=== PATIENT | male | born 1950 | race Caucasian/White ===

== ENCOUNTER 2017-12-11 20:04 | Emergency (ER) | payer MEDICARE, MEDICAID ==
[~2017-12-11] VITALS: Ht 172.7 cm; Wt 70.3 kg
[2017-12-11 21:23] LABS: Basophils # (auto) 0.1 uL; Basophils % (auto) 0.3 % (0.0-2.0); Eosinophils # (auto) 0.3 uL; Eosinophils % (auto) 1.7 % (0.0-7.0); Hematocrit 39.3 % (41.0-53.0); Hemoglobin 13.5 g/dL (13.5-17.5); Lymphocytes # (auto) 1.7 uL; Lymphocytes % (auto) 10.6 % (10.0-50.0); Mean Corpuscular Hemoglobin 31.8 pg (28.0-32.0); Mean Corpuscular Hgb Conc. 34.4 g/dL (32.0-36.0); Mean Corpuscular Volume 92.2 fL (80.0-100.0); Monocytes # (auto) 0.6 uL; Monocytes % (auto) 3.9 % (0.0-12.0); Neutrophils # (auto) 13.6 uL; Neutrophils % (auto) 83.5 % (37.0-80.0); Platelet Count (auto) 371 10^3/uL (140-450); Red Blood Cells 4.26 10^6/uL (4.5-5.90); Red Cell Distribution Width 14.9 % (11.8-14.3); White Blood Cell 16.3 10^3/uL (4.4-10.8)
[2017-12-11] MEDS ORDERED: TETANUS-DIPTH-ACEL PERTUSSIS 0.5ML SYRG IM ONE (21:30)
[2017-12-11 21:33] LABS: Alanine Aminotransferase 22 U/L (16-61); Albumin 3.2 g/dL (3.4-5.0); Anion Gap 13 (5-15); Aspartate Aminotransferase 17 U/L (15-37); BUN/Creatinine Ratio 11.9; Blood Urea Nitrogen 18 mg/dL (7-18); Calcium 7.8 mg/dL (8.5-10.1); Carbon Dioxide 21 mmol/L (21-32); Chloride 105 mmol/L (98-107); GFR African American 60 mL/min; GFR Non-African American 50 mL/min; Glucose 102 mg/dL (74-106); Potassium 3.4 mmol/L (3.5-5.1); Sodium 139 mmol/L (136-145)
[2017-12-11 21:37] LABS: Alkaline Phosphatase 66 U/L (45-117); Bilirubin, Total 0.4 mg/dL (0.2-1.0); Total Protein 6.5 g/dL (6.4-8.2)
[2017-12-12 00:19] VITALS: BP 121/74
[2017-12-12] MEDS ORDERED: NALBUPHINE HCL 10 MG/1ml INJECTION IV ONE (00:30)
== END 2017-12-12 01:56 | disposition home or self-care (01) ==
LOC: ER 20:04
DX: S02.2XXA Fracture of nasal bones, initial encounter for closed fracture (principal); S42.211A Unspecified displaced fracture of surgical neck of right humerus, initial encounter for closed fracture; W18.39XA Other fall on same level, initial encounter; Y93.89 Activity, other specified; Y99.8 Other external cause status; Y92.89 Other specified places as the place of occurrence of the external cause
CPT/HCPCS: 29105; 36415; 70450; 70486; 71045; 72125; 73030; 80053; 80320; 84484; 85025; 90471; 90715; 93005; 96374; 99285; J2300

== ENCOUNTER 2021-07-19 03:00 | Inpatient (IN) | payer MEDICARE, OTHER ==
[~2021-07-19] VITALS: Ht 175.3 cm; Wt 78.5 kg
[2021-07-19] MEDS ORDERED: SODIUM CHLORIDE 0.9% 1,000 ML IV ONE (03:15)
[2021-07-19 05:20] LABS: Basophils # (auto) 0.1 10 ^3/uL (0-0.2); Basophils % (auto) 0.5 % (0.0-2.0); Eosinophils # (auto) 0 10 ^3/uL (0-0.8); Neutrophils # (auto) 8.9 10 ^3/uL (1.6-8.6); Red Cell Distribution Width 15.3 % (11.8-14.3); White Blood Cell 10.4 10^3/uL (4.4-10.8)
[2021-07-19 05:22] LABS: Calcium 7.8 mg/dL (8.5-10.1); Chloride 112 mmol/L (98-107); Eosinophils % (auto) 0.5 % (0.0-7.0); Hematocrit 36.8 % (41.0-53.0); Hemoglobin 12.1 g/dL (13.5-17.5); Lymphocytes % (auto) 9.2 % (10.0-50.0); Mean Corpuscular Hemoglobin 33.7 pg (28.0-32.0); Mean Corpuscular Volume 102.1 fL (80.0-100.0); Monocytes # (auto) 0.4 10 ^3/uL (0-1.3); Monocytes % (auto) 4.3 % (0.0-12.0); Neutrophils % (auto) 85.5 % (37.0-80.0); Potassium 3.9 mmol/L (3.5-5.1); Sodium 142 mmol/L (136-145)
[2021-07-19 05:30] LABS: Alanine Aminotransferase 43 U/L (16-61); Albumin 2.3 g/dL (3.4-5.0); Alkaline Phosphatase 135 U/L (45-117); Anion Gap 7 (5-15); Aspartate Aminotransferase 41 U/L (15-37); Bilirubin, Total 0.9 mg/dL (0.2-1.0); Blood Alcohol < 3.0 mg/dL (0-5); Blood Urea Nitrogen 16 mg/dL (7-18); Carbon Dioxide 23 mmol/L (21-32); GFR African American 159 mL/min; GFR Non-African American 132 mL/min; Glucose 87 mg/dL (74-106); Magnesium 2.2 mg/dL (1.6-2.6); Total Protein 5.9 g/dL (6.4-8.2)
[2021-07-19] MEDS ORDERED: MORPHINE SULFATE INJECTION 2 MG/ML SYRG IV ONE (12:45)
[2021-07-19] MEDS ORDERED: ONDANSETRON HCL 4 MG/2 ML VIAL IV ONE (12:45)
[2021-07-19] MEDS ORDERED: cefTRIAXone 1GM/50ML D5W 50 ML IV ONE (13:15)
[2021-07-19] MEDS ORDERED: CLINDAMYCIN 600MG IV 50 ML IV ONE (13:15)
[2021-07-19] MEDS ORDERED: FOLIC ACID 1 MG TAB PO ONE (13:15)
[2021-07-19] MEDS ORDERED: MULTIPLE VITAMINS W/ MINERALS TAB PO ONE (13:15)
[2021-07-19] MEDS ORDERED: MORPHINE SULFATE INJECTION 2 MG/ML SYRG IV PRN ×3 (13:15→16:15)
[2021-07-19] MEDS ORDERED: LORazepam 2MG/ML-1ML VIAL IV PRN ×2 (13:15)
[2021-07-19] MEDS ORDERED: THIAMINE 100mg/ml INJ (200mg/2ml VIAL) IV ONE (13:15)
[2021-07-19] MEDS ORDERED: NITROGLYCERIN 0.4 MG SL TAB SL PRN ×3 (13:15→16:15)
[2021-07-19] MEDS ORDERED: CLINDAMYCIN 600MG IV 50 ML IV SCH (14:00)
[2021-07-19] MEDS ORDERED: ENOXAPARIN SOD 40 MG/0.4 ML SYRINGE SC ONE (16:15)
[2021-07-19] MEDS ORDERED: SODIUM CHLORIDE 0.9% 1,000 ML IV SCH (16:15)
[2021-07-19] MEDS ORDERED: ACETAMINOPHEN 325 MG TAB PO PRN (16:15)
[2021-07-19] MEDS ORDERED: FAMOTIDINE (10MG/ML) 2ML VL IV ONE (16:15)
[2021-07-19] MEDS ORDERED: NIFEdipine ER 30 MG TAB PO ONE (16:15)
[2021-07-19] MEDS ORDERED: DOCUSATE SOD 100 MG CAP PO PRN (16:15)
[2021-07-19] MEDS ORDERED: BENAZEPRIL HCL 10 MG TAB PO ONE (16:15)
[2021-07-19] MEDS ORDERED: ALUM & MAG HYDROX-SIMETH LIQ(MAALOX) 30 ML PO PRN (16:15)
[2021-07-19] MEDS: chlordiazePOXIDE HCL 25 MG CAP PO SCH (16:33)
[2021-07-19 16:34] LABS: Cholesterol 144 mg/dL (< 200)
[2021-07-19 16:37] LABS: HDL Cholesterol 54 mg/dL (40-59); LDL Cholesterol 71 mg/dL (< 100); Triglycerides 93 mg/dL (< 150)
[2021-07-19] MEDS: hydrALAZINE HCL 20 MG/ML VL IV SCH (18:00)
[2021-07-19 21:15] LABS: % Iron Saturation 22.3 % (20-55)
[2021-07-19] MEDS: ATORVASTATIN 20 MG TAB PO SCH (21:17)
[2021-07-19] MEDS: CLINDAMYCIN 600MG IV 50 ML IV SCH (21:17)
[2021-07-19] MEDS: FAMOTIDINE (10MG/ML) 2ML VL IV SCH (21:17)
[2021-07-19] MEDS: HYDROcodone-ACET 5/325MG TAB PO PRN (21:18)
[2021-07-19 22:00] VITALS: BP 135/94
[2021-07-20] MEDS: chlordiazePOXIDE HCL 25 MG CAP PO SCH ×2 (01:56→08:40)
[2021-07-20] MEDS: HYDROcodone-ACET 5/325MG TAB PO PRN (04:21)
[2021-07-20 05:00] VITALS: BP 101/71
[2021-07-20 05:26] LABS: Basophils # (auto) 0.1 10 ^3/uL (0-0.2); Basophils % (auto) 1.1 % (0.0-2.0); Eosinophils # (auto) 0.1 10 ^3/uL (0-0.8); Eosinophils % (auto) 2.3 % (0.0-7.0); Hematocrit 31.3 % (41.0-53.0); Hemoglobin 10.6 g/dL (13.5-17.5); Lymphocytes # (auto) 1.2 10 ^3/uL (0.4-5.4); Mean Corpuscular Hgb Conc. 33.9 g/dL (32.0-36.0); Mean Corpuscular Volume 100.2 fL (80.0-100.0); Monocytes # (auto) 0.4 10 ^3/uL (0-1.3); Monocytes % (auto) 7.4 % (0.0-12.0); Neutrophils # (auto) 3.5 10 ^3/uL (1.6-8.6); Neutrophils % (auto) 66.2 % (37.0-80.0); Nucleated Red Blood Cells % 0.1 %; Red Blood Cells 3.12 10^6/uL (4.5-5.90); Red Cell Distribution Width 15.2 % (11.8-14.3); White Blood Cell 5.3 10^3/uL (4.4-10.8)
[2021-07-20 05:42] LABS: INR 1.04 (0.9-1.15); Partial Thromboplastin Time 28.2 sec (23.6-33.0)
[2021-07-20 05:43] LABS: Calcium 7.7 mg/dL (8.5-10.1); Magnesium 2.5 mg/dL (1.6-2.6); Potassium 3.2 mmol/L (3.5-5.1)
[2021-07-20 05:50] LABS: BUN/Creatinine Ratio 21.1; Bilirubin, Total 0.4 mg/dL (0.2-1.0); Phosphorus 3.4 mg/dL (2.5-4.90); Total Protein 5.1 g/dL (6.4-8.2)
[2021-07-20] MEDS: hydrALAZINE HCL 20 MG/ML VL IV SCH ×4 (06:00→17:56)
[2021-07-20] MEDS: CLINDAMYCIN 600MG IV 50 ML IV SCH ×3 (06:31→13:23)
[2021-07-20] MEDS: cefTRIAXone 1GM/50ML D5W 50 ML IV SCH (08:42)
[2021-07-20] MEDS: FAMOTIDINE (10MG/ML) 2ML VL IV SCH (09:02)
[2021-07-20 09:05] VITALS: BP 96/64
[2021-07-20] MEDS: MULTIPLE VITAMINS W/ MINERALS TAB PO SCH (09:06)
[2021-07-20] MEDS: ASPirin 81 mg TAB PO SCH (09:06)
[2021-07-20] MEDS: THIAMINE 100mg/ml INJ (200mg/2ml VIAL) IV SCH (09:07)
[2021-07-20] MEDS: ENOXAPARIN SOD 40 MG/0.4 ML SYRINGE SC SCH (09:10)
[2021-07-20] MEDS: FOLIC ACID 1 MG TAB PO SCH (09:10)
[2021-07-20] MEDS: NIFEdipine ER 30 MG TAB PO SCH (10:00)
[2021-07-20] MEDS: BENAZEPRIL HCL 10 MG TAB PO SCH (10:00)
[2021-07-20] MEDS ORDERED: SOD CHL 0.45% 1,000 ML IV SCH (11:45)
[2021-07-20 12:41] VITALS: BP 95/62
[2021-07-20 12:45] LABS: Hepatitis A Ab IgM Negative; Hepatitis B Core IgM Negative; Hepatitis C Antibody Negative (Negative)
[2021-07-20] MEDS: D5W/ SOD CHL 0.9%/KCL 20MEQ 1,000 ML IV SCH (13:22)
[2021-07-20 17:01] VITALS: BP 111/72
[2021-07-20 22:00] VITALS: BP 116/77
[2021-07-21] MEDS: chlordiazePOXIDE HCL 25 MG CAP PO SCH ×3 (00:25→22:58)
[2021-07-21] MEDS: FAMOTIDINE (10MG/ML) 2ML VL IV SCH ×3 (00:25→22:58)
[2021-07-21] MEDS: ATORVASTATIN 20 MG TAB PO SCH ×2 (00:26→22:59)
[2021-07-21] MEDS: CLINDAMYCIN 600MG IV 50 ML IV SCH ×3 (06:26→22:57)
[2021-07-21] MEDS: hydrALAZINE HCL 20 MG/ML VL IV SCH ×4 (06:28→18:00)
[2021-07-21 08:25] VITALS: BP_SYST 100; BP_SYST 150; BP_DIAS 67
[2021-07-21] MEDS: HYDROcodone-ACET 5/325MG TAB PO PRN (08:55)
[2021-07-21] MEDS: cefTRIAXone 1GM/50ML D5W 50 ML IV SCH (09:05)
[2021-07-21] MEDS: BENAZEPRIL HCL 10 MG TAB PO SCH (09:10)
[2021-07-21] MEDS: MULTIPLE VITAMINS W/ MINERALS TAB PO SCH (09:10)
[2021-07-21] MEDS: NIFEdipine ER 30 MG TAB PO SCH (09:11)
[2021-07-21] MEDS: ENOXAPARIN SOD 40 MG/0.4 ML SYRINGE SC SCH (09:12)
[2021-07-21] MEDS: FOLIC ACID 1 MG TAB PO SCH (09:12)
[2021-07-21] MEDS: THIAMINE 100mg/ml INJ (200mg/2ml VIAL) IV SCH (09:13)
[2021-07-21] MEDS: ASPirin 81 mg TAB PO SCH (09:17)
[2021-07-21] MEDS ORDERED: IOHEXOL 350 MG/ML 100ML IJ ONE (12:23)
[2021-07-21 22:00] VITALS: BP 117/75
[2021-07-21] MEDS: D5W/ SOD CHL 0.9%/KCL 20MEQ 1,000 ML IV SCH (22:57)
[2021-07-22] MEDS: D5W/ SOD CHL 0.9%/KCL 20MEQ 1,000 ML IV SCH ×3 (01:10→07:00)
[2021-07-22] MEDS: hydrALAZINE HCL 20 MG/ML VL IV SCH ×5 (01:11→18:57)
[2021-07-22] MEDS: HYDROcodone-ACET 5/325MG TAB PO PRN ×2 (01:17→09:07)
[2021-07-22] MEDS: MORPHINE SULFATE INJECTION 2 MG/ML SYRG IV PRN ×2 (03:51→19:04)
[2021-07-22 05:00] VITALS: BP 116/78
[2021-07-22] MEDS: CLINDAMYCIN 600MG IV 50 ML IV SCH ×3 (06:12→22:22)
[2021-07-22] MEDS: FAMOTIDINE (10MG/ML) 2ML VL IV SCH ×2 (09:08→22:23)
[2021-07-22] MEDS: cefTRIAXone 1GM/50ML D5W 50 ML IV SCH (09:09)
[2021-07-22] MEDS: ASPirin 81 mg TAB PO SCH (09:11)
[2021-07-22] MEDS: chlordiazePOXIDE HCL 25 MG CAP PO SCH (09:12)
[2021-07-22] MEDS: MULTIPLE VITAMINS W/ MINERALS TAB PO SCH (09:12)
[2021-07-22] MEDS: FOLIC ACID 1 MG TAB PO SCH (09:13)
[2021-07-22] MEDS: NIFEdipine ER 30 MG TAB PO SCH (09:51)
[2021-07-22] MEDS: BENAZEPRIL HCL 10 MG TAB PO SCH (09:52)
[2021-07-22] MEDS: THIAMINE 100mg/ml INJ (200mg/2ml VIAL) IV SCH (09:53)
[2021-07-22] MEDS: ENOXAPARIN SOD 40 MG/0.4 ML SYRINGE SC SCH (09:53)
[2021-07-22 10:19] LABS: Calcium 8.3 mg/dL (8.5-10.1); Potassium 3.4 mmol/L (3.5-5.1)
[2021-07-22 13:20] VITALS: BP 101/64
[2021-07-22 17:00] VITALS: BP 101/69
[2021-07-22 20:00] VITALS: BP 135/75
[2021-07-22 22:00] VITALS: BP 107/79
[2021-07-22] MEDS: ATORVASTATIN 20 MG TAB PO SCH (22:23)
[2021-07-23] MEDS: hydrALAZINE HCL 20 MG/ML VL IV SCH ×2 (03:41→06:00)
[2021-07-23] MEDS: D5W/ SOD CHL 0.9%/KCL 20MEQ 1,000 ML IV SCH ×3 (03:45→21:43)
[2021-07-23 05:00] VITALS: BP 115/74
[2021-07-23] MEDS: CLINDAMYCIN 600MG IV 50 ML IV SCH ×3 (05:28→21:44)
[2021-07-23 06:15] LABS: Basophils # (auto) 0.1 10 ^3/uL (0-0.2); Basophils % (auto) 1.4 % (0.0-2.0); Eosinophils # (auto) 0.1 10 ^3/uL (0-0.8); Eosinophils % (auto) 2.8 % (0.0-7.0); Hemoglobin 11.8 g/dL (13.5-17.5); Lymphocytes % (auto) 20.4 % (10.0-50.0); Mean Corpuscular Hgb Conc. 32.8 g/dL (32.0-36.0); Mean Corpuscular Volume 100.7 fL (80.0-100.0); Monocytes # (auto) 0.4 10 ^3/uL (0-1.3); Monocytes % (auto) 8.7 % (0.0-12.0); Neutrophils # (auto) 3.3 10 ^3/uL (1.6-8.6); Neutrophils % (auto) 66.7 % (37.0-80.0); Nucleated Red Blood Cells % 0.1 %; Red Blood Cells 3.58 10^6/uL (4.5-5.90); Red Cell Distribution Width 15.5 % (11.8-14.3)
[2021-07-23 06:27] LABS: Potassium 4.2 mmol/L (3.5-5.1)
[2021-07-23 06:48] LABS: Albumin 2.5 g/dL (3.4-5.0); BUN/Creatinine Ratio 10.3; Bilirubin, Total 0.3 mg/dL (0.2-1.0); Total Protein 6.1 g/dL (6.4-8.2)
[2021-07-23] MEDS ORDERED: chlordiazePOXIDE HCL 25 MG CAP PO SCH (07:00)
[2021-07-23] MEDS ORDERED: hydrALAZINE HCL 20 MG/ML VL IV PRN (07:45)
[2021-07-23 08:00] VITALS: BP 159/111
[2021-07-23] MEDS: FAMOTIDINE (10MG/ML) 2ML VL IV SCH ×2 (09:14→21:43)
[2021-07-23] MEDS: cefTRIAXone 1GM/50ML D5W 50 ML IV SCH (09:14)
[2021-07-23] MEDS: ENOXAPARIN SOD 40 MG/0.4 ML SYRINGE SC SCH (09:19)
[2021-07-23] MEDS: NIFEdipine ER 30 MG TAB PO SCH (09:21)
[2021-07-23] MEDS: ASPirin 81 mg TAB PO SCH (09:21)
[2021-07-23] MEDS: BENAZEPRIL HCL 10 MG TAB PO SCH (09:22)
[2021-07-23] MEDS: FOLIC ACID 1 MG TAB PO SCH (09:23)
[2021-07-23] MEDS: MULTIPLE VITAMINS W/ MINERALS TAB PO SCH (09:23)
[2021-07-23] MEDS: THIAMINE 100mg/ml INJ (200mg/2ml VIAL) IV SCH (09:24)
[2021-07-23 12:00] VITALS: BP 125/96
[2021-07-23] MEDS: HYDROcodone-ACET 5/325MG TAB PO PRN (15:38)
[2021-07-23 16:00] VITALS: BP 117/71
[2021-07-23 20:00] VITALS: BP 117/89
[2021-07-23] MEDS: ATORVASTATIN 20 MG TAB PO SCH (21:43)
[2021-07-23] MEDS: LORazepam 0.5 MG TAB PO PRN (23:26)
[2021-07-24 04:00] VITALS: BP 129/70
[2021-07-24] MEDS: D5W/ SOD CHL 0.9%/KCL 20MEQ 1,000 ML IV SCH ×2 (05:48→13:05)
[2021-07-24] MEDS: CLINDAMYCIN 600MG IV 50 ML IV SCH ×2 (05:49→14:00)
[2021-07-24] MEDS: LORazepam 0.5 MG TAB PO PRN (05:53)
[2021-07-24 08:00] VITALS: BP 159/111
[2021-07-24 09:00] VITALS: BP 112/89
[2021-07-24] MEDS: cefTRIAXone 1GM/50ML D5W 50 ML IV SCH (09:00)
[2021-07-24] MEDS: FAMOTIDINE (10MG/ML) 2ML VL IV SCH ×2 (10:00→21:32)
[2021-07-24] MEDS: ASPirin 81 mg TAB PO SCH (10:00)
[2021-07-24] MEDS: THIAMINE 100mg/ml INJ (200mg/2ml VIAL) IV SCH (10:00)
[2021-07-24] MEDS: NIFEdipine ER 30 MG TAB PO SCH (10:01)
[2021-07-24] MEDS: ENOXAPARIN SOD 40 MG/0.4 ML SYRINGE SC SCH (10:01)
[2021-07-24] MEDS: MULTIPLE VITAMINS W/ MINERALS TAB PO SCH (10:01)
[2021-07-24] MEDS: BENAZEPRIL HCL 10 MG TAB PO SCH (10:01)
[2021-07-24] MEDS: FOLIC ACID 1 MG TAB PO SCH (10:03)
[2021-07-24] MEDS: HYDROcodone-ACET 5/325MG TAB PO PRN ×2 (10:20→16:35)
[2021-07-24 12:00] VITALS: BP 148/96
[2021-07-24 16:00] VITALS: BP 123/82
[2021-07-24] MEDS: ATORVASTATIN 20 MG TAB PO SCH (21:32)
[2021-07-24] MEDS: metroNIDAZOLE 500MG/100ML 100 ML IV SCH (21:34)
[2021-07-24] MEDS: SOD CHL 0.45% 1,000 ML IV SCH (21:50)
[2021-07-24 22:00] VITALS: BP 139/91
[2021-07-25] MEDS: METOCLOPRAMIDE HCL 5MG/ml INJ 2ml VIAL IV PRN ×2 (03:01→20:53)
[2021-07-25] MEDS: HYDROcodone-ACET 5/325MG TAB PO PRN ×2 (03:22→13:30)
[2021-07-25 05:00] VITALS: BP 139/89
[2021-07-25] MEDS: metroNIDAZOLE 500MG/100ML 100 ML IV SCH ×3 (05:07→21:03)
[2021-07-25 09:00] VITALS: BP 138/81
[2021-07-25] MEDS: FAMOTIDINE (10MG/ML) 2ML VL IV SCH ×2 (10:03→21:03)
[2021-07-25] MEDS: ASPirin 81 mg TAB PO SCH (10:04)
[2021-07-25] MEDS: BENAZEPRIL HCL 10 MG TAB PO SCH (10:04)
[2021-07-25] MEDS: cefTRIAXone 1GM/50ML D5W 50 ML IV SCH (10:04)
[2021-07-25] MEDS: ENOXAPARIN SOD 40 MG/0.4 ML SYRINGE SC SCH (10:05)
[2021-07-25] MEDS: MULTIPLE VITAMINS W/ MINERALS TAB PO SCH (10:15)
[2021-07-25] MEDS: FOLIC ACID 1 MG TAB PO SCH (10:15)
[2021-07-25] MEDS: THIAMINE 100mg/ml INJ (200mg/2ml VIAL) IV SCH (10:15)
[2021-07-25 13:00] VITALS: BP 105/69
[2021-07-25] MEDS: SOD CHL 0.45% 1,000 ML IV SCH (15:30)
[2021-07-25 17:00] VITALS: BP 140/96
[2021-07-25] MEDS: NIFEdipine ER 30 MG TAB PO SCH (18:56)
[2021-07-25] MEDS: ATORVASTATIN 20 MG TAB PO SCH (21:03)
[2021-07-26] MEDS: MORPHINE SULFATE INJECTION 2 MG/ML SYRG IV PRN ×4 (02:07→20:56)
[2021-07-26] MEDS: HYDROcodone-ACET 5/325MG TAB PO PRN (04:03)
[2021-07-26] MEDS: metroNIDAZOLE 500MG/100ML 100 ML IV SCH (05:46)
[2021-07-26 06:18] VITALS: BP 107/72
[2021-07-26 09:00] VITALS: BP 110/71
[2021-07-26] MEDS: SOD CHL 0.45% 1,000 ML IV SCH (11:30)
[2021-07-26] MEDS: cefTRIAXone 1GM/50ML D5W 50 ML IV SCH (12:51)
[2021-07-26] MEDS: FAMOTIDINE (10MG/ML) 2ML VL IV SCH ×2 (12:52→21:00)
[2021-07-26] MEDS: THIAMINE 100mg/ml INJ (200mg/2ml VIAL) IV SCH (12:52)
[2021-07-26] MEDS: ASPirin 81 mg TAB PO SCH (12:52)
[2021-07-26] MEDS: FOLIC ACID 1 MG TAB PO SCH (12:53)
[2021-07-26] MEDS: MULTIPLE VITAMINS W/ MINERALS TAB PO SCH (12:54)
[2021-07-26] MEDS: BENAZEPRIL HCL 10 MG TAB PO SCH (12:54)
[2021-07-26] MEDS: ENOXAPARIN SOD 40 MG/0.4 ML SYRINGE SC SCH (12:55)
[2021-07-26] MEDS: NIFEdipine ER 30 MG TAB PO SCH (12:56)
[2021-07-26 13:00] VITALS: BP 113/72
[2021-07-26 17:00] VITALS: BP 133/76
[2021-07-26 20:00] VITALS: BP 109/78
[2021-07-26] MEDS: ATORVASTATIN 20 MG TAB PO SCH (22:00)
[2021-07-27 06:40] LABS: Basophils # (auto) 0 10 ^3/uL (0-0.2); Basophils % (auto) 0.4 % (0.0-2.0); Eosinophils # (auto) 0.2 10 ^3/uL (0-0.8); Eosinophils % (auto) 3.4 % (0.0-7.0); Hematocrit 29.4 % (41.0-53.0); Hemoglobin 9.8 g/dL (13.5-17.5); Lymphocytes # (auto) 0.8 10 ^3/uL (0.4-5.4); Lymphocytes % (auto) 12.9 % (10.0-50.0); Mean Corpuscular Hemoglobin 33.2 pg (28.0-32.0); Mean Corpuscular Hgb Conc. 33.5 g/dL (32.0-36.0); Mean Corpuscular Volume 99.1 fL (80.0-100.0); Monocytes # (auto) 0.6 10 ^3/uL (0-1.3); Monocytes % (auto) 9.7 % (0.0-12.0); Neutrophils # (auto) 4.5 10 ^3/uL (1.6-8.6); Neutrophils % (auto) 73.6 % (37.0-80.0); Red Blood Cells 2.97 10^6/uL (4.5-5.90); Red Cell Distribution Width 14.7 % (11.8-14.3); White Blood Cell 6.1 10^3/uL (4.4-10.8)
[2021-07-27 07:30] LABS: Potassium 3.7 mmol/L (3.5-5.1)
[2021-07-27 07:57] LABS: BUN/Creatinine Ratio 12.3; Calcium 8.3 mg/dL (8.5-10.1)
[2021-07-27 09:00] VITALS: BP 124/92
[2021-07-27] MEDS: cefTRIAXone 1GM/50ML D5W 50 ML IV SCH (09:00)
[2021-07-27] MEDS: HYDROcodone-ACET 5/325MG TAB PO PRN (09:05)
[2021-07-27] MEDS: FAMOTIDINE (10MG/ML) 2ML VL IV SCH (10:00)
[2021-07-27] MEDS: NIFEdipine ER 30 MG TAB PO SCH (10:00)
[2021-07-27] MEDS: BENAZEPRIL HCL 10 MG TAB PO SCH (10:00)
[2021-07-27] MEDS: FOLIC ACID 1 MG TAB PO SCH (10:00)
[2021-07-27] MEDS: MULTIPLE VITAMINS W/ MINERALS TAB PO SCH (10:00)
[2021-07-27] MEDS: ENOXAPARIN SOD 40 MG/0.4 ML SYRINGE SC SCH (10:00)
[2021-07-27] MEDS: THIAMINE 100mg/ml INJ (200mg/2ml VIAL) IV SCH (10:00)
[2021-07-27] MEDS: ASPirin 81 mg TAB PO SCH (10:00)
[2021-07-27 13:00] VITALS: BP 124/93
[2021-07-27 16:38] VITALS: BP_SYST 122; BP_SYST 124; BP_DIAS 91; BP_DIAS 92
== END 2021-07-27 18:49 | DRG 178 ==
LOC: ER 03:00 → EDBD 03:00 → EDUNIT# 03:00 → OVERFLOW 13:01 → WEST WING 18:38
PROVIDERS: ADMIT Hospitalist; ATTEND Family Medicine
DX: J69.0 Pneumonitis due to inhalation of food and vomit (principal); E44.0 Moderate protein-calorie malnutrition; B17.9 Acute viral hepatitis, unspecified; I16.9 Hypertensive crisis, unspecified; F10.139 Alcohol abuse with withdrawal, unspecified; I67.4 Hypertensive encephalopathy; D64.9 Anemia, unspecified; K70.10 Alcoholic hepatitis without ascites; M54.9 Dorsalgia, unspecified; G89.4 Chronic pain syndrome; K29.20 Alcoholic gastritis without bleeding; M47.812 Spondylosis without myelopathy or radiculopathy, cervical region; W06.XXXA Fall from bed, initial encounter; M48.061 Spinal stenosis, lumbar region without neurogenic claudication; E78.5 Hyperlipidemia, unspecified; E78.00 Pure hypercholesterolemia, unspecified; Z60.2 Problems related to living alone; I10 Essential (primary) hypertension; F10.129 Alcohol abuse with intoxication, unspecified; Y90.9 Presence of alcohol in blood, level not specified; Y93.89 Activity, other specified; Y92.89 Other specified places as the place of occurrence of the external cause; Y99.8 Other external cause status; Z83.3 Family history of diabetes mellitus; Z85.038 Personal history of other malignant neoplasm of large intestine; Z68.25 Body mass index [BMI] 25.0-25.9, adult
CPT/HCPCS: 36415; 70450; 71045; 71275; 72125; 72131; 80048; 80053; 80061; 80074; 80320; 82306; 82550; 83036; 83540; 83550; 83735; 83880; 84100; 84443; 84484; 85025; 85379; 85610; 85730; 87040; 87426; 87493; 93005; 93306; 93886; 93970; 96361; 96365; 96367; 96372; 96375; 97110; 97116; 97163; 97530; G0378; J0696; J2405; J3490